=== PATIENT | female | born 1965 | race Asian ===

== ENCOUNTER 2021-01-06 10:14 | Outpatient (CLI) | payer OTHER | END 2021-01-06 10:15 | disposition home or self-care (01) | LOC: DI 10:14 | PROVIDERS: ATTEND Physician Assistant | DX: R01.1 Cardiac murmur, unspecified (principal); I10 Essential (primary) hypertension; G81.91 Hemiplegia, unspecified affecting right dominant side; G45.9 Transient cerebral ischemic attack, unspecified | CPT/HCPCS: 93306 ==

== ENCOUNTER 2022-08-16 06:27 | Outpatient (CLI) | payer BC ==
--- NOTE | 2022-08-16 16:50 | Ultrasound Report ---
PROCEDURE: Pelvic w/Transvaginal INDICATIONS: AMENORRHEA, IUD SURVEILLANCE TECHNIQUE: Real-time scanning was performed of the pelvic organs, with image documentation. Additional endovagi nal scanning was necessary due to incomplete visualization of the adnexal and endometrial structures by transabdominal scanning. COMPARISON: None. FINDINGS: Uterus: Uterus is anteverted and normal in size at 6.8 x 3.6 x 4.7 cm. The myometrium is heterogeno us. The endometrium measures 3.6 mm in combined thickness. There is a midline posterior intramural fibroid measuring 1.5 x 1.0 x 1.2 cm. Intrauterine device noted in place. Ovaries: The right ovary measures 2.6 x 1.6 x 1.1 cm, with a calculated ovarian volume of 2.0 cc. T he left ovary not visualized. Other: No pathologic free abdominal or pelvic fluid. IMPRESSION: 1. Intrauterine device in good position. 2. Small uterine fibroid, 1.5 cm Reviewed by: Alexis Carreon MD on 08/16/2022 3:49 PM AKST Approved by: Alexis Carreon MD on 08/16/2022 3:49 PM AKST Station ID: [id number]
== END 2022-08-16 06:28 | disposition home or self-care (01) ==
LOC: DI 06:27
PROVIDERS: ATTEND Family Medicine
DX: D25.1 Intramural leiomyoma of uterus (principal); N91.2 Amenorrhea, unspecified; Z30.431 Encounter for routine checking of intrauterine contraceptive device

== ENCOUNTER 2024-03-26 15:06 | Outpatient (CLI) | payer BC ==
--- NOTE | 2024-03-28 09:12 | Mammography Report ---
BILATERAL DIGITAL SCREENING MAMMOGRAM 3D/2D: 03/26/2024 CLINICAL: Baseline exam. Routine screening. No prior exams were available for comparison. Both breasts are heterogeneously dense, which may obscure small masses (category c / 51-75% glandular tissue). No significant masses, calcifications, or other findings are seen in either breast. IMPRESSION: NEGATIVE There is no mammographic evidence of malignancy. A 1 year screening mammogram is recommended. Based on the Tyrer Cuzick model (a risk assessment model) the patient's lifetime risk is 12.7% and he r 10 year risk is 4.4%. According to the ACR, ACS, and NCCN guidelines, an annual breast MRI exam jose manuel ng with mammogram is recommended if the patient's lifetime risk is 20% or greater. This exam was interpreted at Station ID: [id number]. NOTE: For mammograms, a report in lay terms will be sent to the patient. Approximately 15% of breast malignancies will not be visualized mammographically. In the management of a palpable breast mass, a negative mammogram must not discourage biopsy of a clinically suspicious lesion. Electronically Signed By: Del martínez/judy:03/27/2024 11:42:47 letter sent: No_Letter ACR BI-RADS Category 1: Negative 3341F PARENCHYMAL PATTERN: (D) - The breast(s) demonstrate(s) heterogeneously dense fibroglandular parjeremiahy dipti. BI-RADS CATEGORY: (1) - 1 RECOMMENDATION: (ANNUAL) - Recommend routine annual screening mammography. [id number] 1 year screening LATERALITY: (B)
== END 2024-03-26 15:07 | disposition home or self-care (01) ==
LOC: DI 15:06
PROVIDERS: ATTEND Obstetrics & Gynecology
DX: Z12.31 Encounter for screening mammogram for malignant neoplasm of breast (principal); R92.333 Mammographic heterogeneous density, bilateral breasts